=== PATIENT | male | born 1995 | race Hispanic/Latino ===

== ENCOUNTER 2018-07-03 09:19 | Emergency (ER) | payer BC ==
[2018-07-03 09:23] VITALS: O2SAT 100; BMI 26.6
--- NOTE | 2018-07-03 10:15 | ED PDOC ---
Syncope/Near Syncope/Dizziness Time Seen by Provider: 07/03/18 09:35 Chief Complaint (Nursing): Syncope History Per: Patient History/Exam Limitations: no limitations Onset/Duration Of Symptoms: Mins Activity At Onset Of Symptoms: Standing Associated Symptoms Preceding Syncopal Episode: No Predromal Symptoms (Sudden Onset), Lightheadedness Additional Complaint(s): 22 YO Male with PMHx of anxiety, and panic attacks was brought to [facility] ED via [facility] after syncope. Pt was [place] the train when started feeling chest tightness (not pain), nausea and dizziness. Within a few mins of onset pt blanked out, and remembers waking up in the floor. Pt passed out for a few mins, not post- ictal, no urinary or fecal incontinence, no abnormal movement or unilateral weakness. Of note, pt states that he had loose BM last night and no PO intake today. Denies pain or any obvious trauma. Of note, pt had similar episode in the past when he was in the train but this is the first time he passed out. MD: Urvashi PMHx: anxiety, panic attacks, hx of febrile seizures as a child SurgHx: denies FHx: hx of brain CA in father, and leukemia in grandfather Shx: denies ETOH, smoking and illicit drug use Allergies: NKDA On psych meds. Past Medical History Vital Signs: Last Vital Signs Temp 97 F L 07/03/18 09:22 Pulse 68 07/03/18 09:22 Resp 24 07/03/18 09:22 BP 111/67 07/03/18 09:22 Pulse Ox 100 07/03/18 09:22 - Medical History PMH: Anxiety - Family History Family History: States: Other Other Family History: Brain CA - Allergies Allergies/Adverse Reactions: Allergies Allergy/AdvReac Type Severity Reaction Status Date / Time cefprozil [From Cefzil] Allergy RASH Verified 07/03/18 09:27 Review of Systems Constitutional: Negative for: Fever Physical Exam - Physical Exam Appears: Positive for: No Acute Distress Head Exam: Positive for: NORMAL INSPECTION Eye Exam: Positive for: EOMI, PERRL Cardiovascular/Chest: Positive for: Regular Rate, Rhythm. Negative for: Murmur Respiratory: Positive for: Normal Breath Sounds. Negative for: Wheezing Gastrointestinal/Abdominal: Positive for: Normal Exam, Bowel Sounds, Soft. Negative for: Tenderness Extremity: Positive for: Normal ROM Neurologic/Psych: Positive for: Alert, community mental health social worker II-XII, Oriented. Negative for: Motor/Sensory Deficits - Laboratory Results Result Diagrams: 07/03/18 10:50 - ECG O2 Sat by Pulse Oximetry: 100 - Progress ED Course And Treament: 22 YO male with syncope, likely vaso-vagal -bmp, trop -UDS, udip, ETOH -Ct head w/o contrast -IVF -ACHS-91 -EKG-no acute ST changes noted, normal sinus with rate of 65 -orthostat bp 13:01--pt seen and reevaluated States that he feels much better right now CT head and blood work reviewed with pt All workup neg Will d/c pt home with follow up with PMD in 1 week Pt agrees with plan Disposition - Clinical Impression Clinical Impression: Syncope - Disposition Referrals: Emir Galvin MD [Staff Provider] - Angel Soto MD [Staff Provider] - Disposition Time: 13:25 Condition: GOOD Additional Instructions: Follow up with your PCP in 2-3 days. Return for worsening. Instructions: Syncope (Fainting)
[2018-07-03] MEDS ORDERED: Sodium Chloride 0.9% 1,000 ML IV SCH (10:45)
[2018-07-03 11:14] LABS: BLOOD UREA NITROGEN 20 mg/dl (9-20); CALCIUM 9.5 mg/dL (8.4-10.2); GFR NON-AFRICAN AMERICAN > 60
--- NOTE | 2018-07-03 11:16 | CT ---
Date of service: 07/03/2018 PROCEDURE: CT HEAD WITHOUT CONTRAST. HISTORY: syncope COMPARISON: None available. TECHNIQUE: Axial computed tomography images were obtained through the head/brain without intravenous contrast. Radiation dose: Total exam DLP = 825.38 mGy-cm. This CT exam was performed using one or more of the following dose reduction techniques: Automated exposure control, adjustment of the mA and/or kV according to patient size, and/or use of iterative reconstruction technique. FINDINGS: HEMORRHAGE: No intracranial hemorrhage. BRAIN: No mass effect or edema. The muñoz-white matter differentiation appears intact. Please note that MRI with diffusion imaging is more sensitive in the detection of acute ischemic event. VENTRICLES: No hydrocephalus. CALVARIUM: Unremarkable. PARANASAL SINUSES: Unremarkable as visualized. No significant inflammatory changes. MASTOID AIR CELLS: Unremarkable as visualized. No inflammatory changes. OTHER FINDINGS: None. IMPRESSION: No acute intracranial pathology identified.
[2018-07-03 13:02] LABS: BARBITURATES, UR NEGATIVE (NEGATIVE); BENZODIAZEPINES, UR NEGATIVE (NEGATIVE); OPIATES, UR NEGATIVE (NEGATIVE); PHENCYCLIDINE, UR NEGATIVE (NEGATIVE)
[2018-07-03 13:18] VITALS: BP 115/56; PULSE 65; RESP 18; TEMP 97.6
--- NOTE | 2018-07-03 14:40 | CARD ---
APPROVED REPORT Date of service: 07/03/2018 <Conclusion> Normal sinus rhythm Normal ECG
== END 2018-07-03 13:25 | disposition home or self-care (01) ==
LOC: H.ER 09:19
DX: R55 Syncope and collapse (principal)
CPT/HCPCS: 70450; 80048; 82948; 84484; 93005; 99285; G0480; J7030